=== PATIENT | male | born 1965 | race Caucasian/White ===

== ENCOUNTER 2018-05-21 07:52 | Day surgery (SDC) | payer OTHER ==
[2018-05-20 14:15] VITALS: BMI 26.1
[2018-05-21] MEDS ORDERED: PROPOFOL 20 ML ONE ×5 (08:24)
[2018-05-21 09:37] VITALS: TEMP 97.3
[2018-05-21 15:00] VITALS: BP 124/86; PULSE 66
--- NOTE | 2018-05-22 16:26 | PATH ---
Surgical Pathology Report Patient Name: CHEY ROYAL [facility]. Rec. #: [id number] /Age/Gender: 1965 (Age: 52) / M Account: [id number] Location: ASU-ENDOSCOPY Taken: 05/21/2018 Received: 05/21/2018 Reported: 05/22/2018 Physicians: Sukhwinder Garcia D.O. Specimen(s) Received BX CECAL POLYP Clinical History Screening Postoperative diagnosis: Colon polyp and hemorrhoids Final Diagnosis CECAL POLYP, POLYPECTOMY: TUBULAR ADENOMA. Electronically Signed Monika Mike M.D. Gross Description Received in formalin, labeled "cecal polyp biopsy" is a funez, irregular portion of soft tissue measuring 0.3 cm. in greatest dimension. The specimen is submitted in toto in one cassette. 05/21/201805/21/2018
== END 2018-05-21 10:30 | disposition home or self-care (01) ==
LOC: JASU-ENDO 07:52
PROVIDERS: ATTEND Internal Medicine Gastroenterology
PROC: 0DBH8ZX Excision of Cecum, Via Natural or Artificial Opening Endoscopic, Diagnostic (ICD-10-PCS; principal; 2018-05-21 09:00)
DX: Z12.11 Encounter for screening for malignant neoplasm of colon (principal); K64.8 Other hemorrhoids; D12.0 Benign neoplasm of cecum
CPT/HCPCS: 88305-TC

== ENCOUNTER 2020-01-07 16:56 | Inpatient (IN) | payer OTHER ==
--- NOTE | 2020-01-07 17:26 | PDOC ---
History of Present Illness - General History Source: Patient, Significant Other Exam Limitations: No Limitations - History of Present Illness Initial Comments: 01/07/20 17:50 54 y.o. M no significant PMHx presenting due to fall. Patient states he has been feeling depressed for the past 2 weeks. Patient significant other (Alysia [phone]) reported that he was drinking this afternoon and was seen laying down on the floor in a contorted position. The daughter then came home who saw him get up walk, to the stairs and fall. Patient reports a non radiating pain in his R shoulder, no head trauma or LOC. Patient denies blurry vision, headache, chest pain, SOB, N/V/D. Patient when asked, said he would like treatment at [facility] because he "needs help". PCP: Dr. Gifford ([place]) PMHx: None Meds: In Chart Allergies: NKDA EKG: Sinus tachy, Left atrial enlargement, QTc 469 CT scan: Head CT shows a trace amount of acute subarachnoid blood within the basal segment of the left sylvian fissure with an attenuation focus within the left medial temporal lobe. Dispo: 01/07/20 21:42 01/07/20 21:49 Is this a multiple visit Asthma Patient?: No Timing/Duration: momentarily Severity: moderate Associated Symptoms: reports: other (Shoulder pain) Aspirin Received prior to arrival: Yes: no aspirin today Beta Mi Contraindications(Core Measure): Yes: Not Prescribed Beta Mi Given by EMS(Core Measure): No Beta Mi Taken at Home(Core Measure): No Beta Mi Not Indicated at this Time(Core Measure): No <Austen Valdovinos - Last Filed: 01/07/20 21:49> <Ana Lerma - Last Filed: 01/08/20 00:33> - General Chief Complaint: Injury Stated Complaint: FALL Time Seen by Provider: 01/07/20 17:11 Past History - Travel History Traveled outside of the country in the last 30 days: No Close contact w/someone who was outside of country & ill: No - Medical History Anemia: No Asthma: No Cancer: No Cardiac Disorders: No CVA: No COPD: No CHF: No Dementia: No Diabetes: No GI Disorders: No Disorders: No HTN: No Hypercholesterolemia: No Liver Disease: No Seizures: No Thyroid Disease: No - Psycho-Social/Smoking History Smoking History: Former smoker Have you smoked in the past 12 months: No If you are a former smoker, when did you quit?: 1994 <Austen Valdovinos - Last Filed: 01/07/20 21:49> <Ana Lerma - Last Filed: 01/08/20 00:33> - Medical History Allergies/Adverse Reactions: Allergies Allergy/AdvReac Type Severity Reaction Status Date / Time No Known Allergies Allergy Verified 01/07/20 17:25 Home Medications: Ambulatory Orders NK [No Known Home Medication] 05/20/18 Review of Systems - Review of Systems Able to Perform ROS?: Yes Is the patient limited [place] proficient: No Constitutional: No: Chills, Fever HEENTM: No: Blurred Vision, Double Vision Respiratory: No: Cough, Shortness of Breath Cardiac (ROS): No: Chest Pain, Lightheadedness ABD/GI: No: Constipated, Diarrhea, Nausea, Vomiting : No: Burning, Dysuria Musculoskeletal: Yes: Joint Pain (R Shoulder). No: Back Pain Neurological: No: Headache, Numbness, Tingling, Dizziness Psychiatric: Yes: Depression. No: Anxiety Hematologic/Lymphatic: No: Easy Bleeding, Easy Bruising <Austen Valdovinos - Last Filed: 01/07/20 21:49> *Physical Exam - Physical Exam General Appearance: Yes: Nourished, Appropriately Dressed Respiratory/Chest: positive: Lungs Clear, Normal Breath Sounds. negative: Chest Tender, Respiratory Distress, Accessory Muscle Use, Crackles, Stridor, Wheezing Cardiovascular: positive: Regular Rhythm, Regular Rate. negative: JVD Gastrointestinal/Abdominal: positive: Normal Bowel Sounds, Flat, Soft. negative: Tender, Organomegaly, Rebound, Tenderness Musculoskeletal: positive: Normal Inspection. negative: CVA Tenderness Extremity: positive: Normal Inspection. negative: Tender Integumentary: positive: Normal Color, Dry, Warm Neurologic: positive: Fully Oriented, Alert, Normal Mood/Affect, Normal Response <Austen Valdovinos - Last Filed: 01/07/20 21:49> - Vital Signs Last Vital Signs Temp Pulse Resp BP Pulse Ox 98.5 F 106 H 20 149/106 H 93 L 01/07/20 17:25 01/07/20 21:49 01/07/20 21:49 01/07/20 21:49 01/07/20 21:49 <Ana Lerma - Last Filed: 01/08/20 00:33> ED Treatment Course - LABORATORY CBC & Chemistry Diagram: 01/07/20 18:00 01/07/20 18:00 <Austen Valdovinos - Last Filed: 01/07/20 21:49> - LABORATORY CBC & Chemistry Diagram: 01/07/20 18:00 01/07/20 18:00 - ADDITIONAL ORDERS Additional order review: Laboratory Results 01/07/20 01/07/20 01/07/20 21:25 21:25 21:25 PT with INR 11.40 INR 0.97 PTT (Actin FS) Cancelled 26.4 Sodium Potassium Chloride Carbon Dioxide Anion Gap BUN Creatinine Est GFR (CKD-EPI)AfAm Est GFR (CKD-EPI)NonAf Random Glucose Calcium Total Bilirubin AST ALT Alkaline Phosphatase Creatine Kinase Creatine Kinase Index CK-MB (CK-2) Troponin I Total Protein Albumin Blood Type A POSITIVE Antibody Screen Negative 01/07/20 18:00 PT with INR INR PTT (Actin FS) Sodium 145 Potassium 4.0 Chloride 109 H Carbon Dioxide 30 Anion Gap 6 L BUN 14.4 Creatinine 0.8 Est GFR (CKD-EPI)AfAm 118.20 Est GFR (CKD-EPI)NonAf 101.99 Random Glucose 91 Calcium 8.8 Total Bilirubin 0.4 AST 54 H ALT 56 Alkaline Phosphatase 57 Creatine Kinase 194 Creatine Kinase Index 0.8 CK-MB (CK-2) 1.6 Troponin I < 0.02 Total Protein 7.4 Albumin 3.9 Blood Type Antibody Screen 01/07/20 18:00 RBC 4.18 MCV 95.0 MCHC 33.9 RDW 14.0 MPV 6.9 L Neutrophils % 73.2 Lymphocytes % 17.7 Monocytes % 6.2 Eosinophils % 1.8 Basophils % 1.1 - Medications Given in the ED: ED Medications Discontinued Medications Generic Name Dose Route Start Last Admin Trade Name Freq PRN Reason Stop Dose Admin Acetaminophen 1,000 mg 01/07/20 21:24 01/07/20 21:43 Ofirmev Injection - IVPB 01/07/20 21:25 1,000 mg ONCE ONE Administration Lactated Ringer's 1,000 ml 01/07/20 17:40 01/07/20 18:39 Lactated Ringers Solution IV 01/07/20 17:41 1,000 ml ONCE ONE Administration Levetiracetam 1,000 mg 01/07/20 21:48 01/07/20 23:25 Keppra Injection - IVPB 01/07/20 21:49 1,000 mg ONCE ONE Administration Metoclopramide HCl 10 mg 01/07/20 21:26 01/07/20 21:43 Reglan Injection - IVPUSH 01/07/20 21:27 10 mg ONCE ONE Administration <Ana Lerma - Last Filed: 01/08/20 00:33> Medical Decision Making - Medical Decision Making 01/07/20 18:03 54 y.o. M no significant PMHx presenting due to fall. DDx: Acute alcohol intoxication, mechanical fall, depression, rhabdo Labs: AST 54, ALT 56, CK 194, Trop <0.02 CT: Head CT shows a trace amount of acute subarachnoid blood within the basal segment of the left sylvian fissure with an attenuation focus within the left medial temporal lobe. Sinus tachy, Left atrial enlargement, QTc 469 Dispo: Signed out to Resident Dr. Lerma 01/07/20 21:48 <Austen Valdovinos - Last Filed: 01/07/20 21:49> - Medical Decision Making 01/08/20 00:19 Brain CTA: FINDINGS: Intracranial portion of the left vertebral artery is not visualized and may be congenitally very small or absent. No large vessel occlusion, cerebral aneurysm, or AVM. Dural sinuses appear patent. Will admit to ICU. 01/08/20 00:29 Call placed to ICU, they will come evaluate the patient. <Ana Lerma - Last Filed: 01/08/20 00:33> Discharge <Austen Valdovinos - Last Filed: 01/07/20 21:49> - Discharge Information Problems reviewed: Yes <Ana Lerma - Last Filed: 01/08/20 00:33> - Discharge Information Clinical Impression/Diagnosis: Subarachnoid bleed
[2020-01-07] MEDS ORDERED: LACTATED RINGERS SOLUTION 1000 ML INFUS.BAG IV ONE (17:40)
--- NOTE | 2020-01-07 17:52 | PDOC ---
Documentation entered by Gurvinder Hickman SCRIBE, acting as scribe for Claritza Asencio DO. Claritza Asencio, DO: This documentation has been prepared by the Vick chavez Angel, SCRIBE, under my direction and personally reviewed by me in its entirety. I confirm that the documentation accurately reflects all work, treatment, procedures, and medical decision making performed by me. Attending Attestation - Resident Resident Name: Austen Valdovinos - ED Attending Attestation I have performed the following: I have examined & evaluated the patient, The case was reviewed & discussed with the resident, I agree w/resident's findings & plan, Exceptions are as noted - HPI HPI: 01/07/20 17:52 The patient is a 54 year old male with no significant past medical history who presents to the ED BIBA s/p unwitnessed fall earlier today. The patient was drunk and fell down some stairs. The patient was found on the ground and is unable to determine how long he was on the ground. spoke with the patients roommate on the phone and they state the patient has been drinking a lot more recently. Patient recalls the incident stating he was walking down the stairs and missed the last 2 steps falling to the ground. Denies any head injuries, LOC, headache, chest pain or SOB. - Physicial Exam PE: 01/07/20 17:48 Gen: aaox3, nad heent: EOMI, MMM neck: supple, no midline ttp, no stepoffs or deformities head: no external signs of trauma back: no midline ttp, no stepoffs or deformities abd: soft, nt/nd +bs ext: no c/c/e, FROM of all extremities, no ttp, pulses intact, muscle strength intact, sensation intact neuro: cn ii-xii grossly intact, no focal deficits - Critical Care Time Total Critical Care Time: 60 Critical Care Statement: The care of this patient involved high complexity decision making to prevent further life threatening deterioration of the patient's condition and/or to evaluate & treat vital organ system(s) failure or risk of failure. - Medical Decision Making 01/07/20 17:50 a/p: 54yo male with etoh use who fell down 2 stairs today -was found sleeping on the floor by his daughter -admits to taking shots of vodka today and decided to lay down on the floor -denies loc, denies head injury, C/o R shoulder pain, but has FROM -sensation intact -muscle strength intact -no c/t/l spine ttp -will send for ct head and c spine -will send labs as pt was found on the floor - unsure how long he was sleeping on the floor -will monitor and reassess 01/07/20 21:25 pt with subarachnoid hemorrhage and intraparenchymal bleeding will send type and screen coags will call Dr Darrell Dumont, neurosx to discuss pt and family updated npo iv tylenol for almeida 01/07/20 21:27 ct c spine neg 01/07/20 21:[address] Dumont who recommends CTA brain, if neg for aneurysm than can admit to [facility] and monitor, he will see patient in consult, if +aneurysm then will need transfer 01/08/20 00:29 no aneurysm visualized will admit to ICU given subarachnoid/parenchymal bleeding 01/08/20 00:49 ICU resident at the bedside Heart Score/ECG Review - ECG Intrepretation Comment:: 01/07/20 21:39 sinus tach at 107, t wave inversions inferior leads, no acute st changes, abnl ekg Discharge - Discharge Information Problems reviewed: Yes Clinical Impression/Diagnosis: Subarachnoid bleed Condition: Guarded - Admission Yes - Follow up/Referral - Patient Discharge Instructions - Post Discharge Activity
[2020-01-07 18:46] LABS: BASO % 1.1 % (0-2.0); EOS % 1.8 % (0-4.5); HEMATOCRIT 39.7 % (35.4-49); HEMOGLOBIN 13.4 GM/dL (11.7-16.9); LYMPH % 17.7 % (8-40); MCH 32.2 pg (25.7-33.7); MCHC 33.9 g/dl (32.0-35.9); MEAN PLT VOLUME 6.9 fl (7.5-11.1); MONO % 6.2 % (3.8-10.2); NEUT % 73.2 % (42.8-82.8); PLATELET COUNT 284 K/MM3 (134-434); RBC 4.18 M/mm3 (4.00-5.60); WHITE BLOOD COUNT 7.6 K/mm3 (4.0-10.0)
[2020-01-07 19:28] LABS: ALBUMIN 3.9 g/dl (3.4-5.0); ALK PHOS 57 U/L (45-117); ANION GAP 6 MMOL/L (8-16); BILIRUBIN,TOTAL 0.4 mg/dL (0.2-1); BLOOD UREA NITROGEN 14.4 mg/dL (7-18); CALCIUM 8.8 mg/dL (8.5-10.1); CHLORIDE 109 mmol/L (98-107); CO2 30 mmol/L (21-32); CREATININE 0.8 mg/dL (0.55-1.3); GLUCOSE,RANDOM 91 mg/dL (74-106); SGOT/AST 54 U/L (15-37); SGPT/ALT 56 U/L (13-61); SODIUM 145 mmol/L (136-145); TOT PROT 7.4 g/dl (6.4-8.2)
--- OUTSIDE RECORDS SUMMARY | 2020-01-07 20:34 | XMS ---
:1965 Author Organization [facility] Support Name Relationship Address Phone UCHE REALTY Unavailable [address] [phone] [place] [address] MOE ROYAL FATHER [address] [facility] [place] [address] Re-disclosure Warning The records that you are about to access may contain information from federally- assisted alcohol or drug abuse programs. If such information is present, then the following federally mandated warning applies: This information has been disclosed to you from records protected by federal confidentiality rules (42 CFR part 2). The federal rules prohibit you from making any further disclosure of this information unless further disclosure is expressly permitted by the written consent of the person to whom it pertains or as otherwise permitted by 42 CFR part 2. A general authorization for the release of medical or other information is NOT sufficient for this purpose. The Federal rules restrict any use of the information to criminally investigate or prosecute any alcohol or drug abuse patient.The records that you are about to access may contain highly sensitive health information, the redisclosure of which is protected by Article 27-F of the [facility] Public Health law. If you continue you may haveaccess to information: Regarding HIV / AIDS; Provided by facilities licensed or operated by the [facility] Office of Mental Health; or Provided by the [facility] Office for People With Developmental Disabilities. If such information is present, then the following [facility] mandated warning applies: This information has been disclosed to you from confidential records which are protected by state law. State law prohibits you from making any further disclosure of this information without the specific written consent of the person to whom it pertains, or as otherwise permitted by law. Any unauthorized further disclosure in violation of state law may result in a fine or senior care sentence or both. A general authorization for the release of medical or other information is NOT sufficient authorization for further disclosure. Insurance Providers Payer name Policy type Policy ID Covered Covered democrat's Policy P lisha / Coverage democrat ID relationship to Weinstein Inf ormation type weinstein [employer] [id number] SP [id number] [employer] [id number] 1 [id number] Results ID Date Data Source [id number] 04/15/1799 11:59:58 PM -04:56:02 [facility] Name Value Range Interpretation Code Description Data Kate rce(s) Supporting Document(s ) SARS-COV-2 [facility] QL KATTY+PROBE This lab was ordered by REEMA EISENBERG and reported by [facility]. Procedure
[2020-01-07] MEDS ORDERED: ACETAMINOPHEN 1000 MG/100 ML VIAL (NON FORMULARY) IVPB ONE (21:24)
[2020-01-07] MEDS ORDERED: METOCLOPRAMIDE HCL INJECTION 10 MG/2 ML VIAL IVPUSH ONE (21:26)
[2020-01-07] MEDS ORDERED: METOCLOPRAMIDE HCL INJECTION 10 MG/2 ML VIAL ONE (21:33)
[2020-01-07] MEDS ORDERED: ACETAMINOPHEN INJECTION 100 ML IVPB ONE (21:33)
[2020-01-07] MEDS ORDERED: levETIRAcetam 500 MG/5 ML INJECTION VIAL IVPB ONE ×2 (21:48→23:07)
[2020-01-07 22:06] LABS: INR 0.97 (0.83-1.09); PROTHROMBIN TIME (PATIENT) 11.4 SEC (9.7-13.0)
[2020-01-07 22:09] LABS: ACTIVATED PTT 26.4 SECONDS (25.2-36.5)
--- OUTSIDE RECORDS SUMMARY | 2020-01-08 00:51 | XMS ---
:1965 Author Organization [facility] Support Name Relationship Address Phone UCHE REALTY Unavailable [address] [place] [address] MOE ROYAL FATHER [address] [facility] [place] [address] Re-disclosure Warning The records that you are [...] is protected by Article 27-F of the [facility] Public Health law. If you continue you may haveaccess to information: Regarding HIV / AIDS; Provided by facilities licensed or operated by the [facility] Office of Mental Health; or Provided by the [facility] Office for People With Developmental Disabilities. If such information is present, then the following [facility] mandated warning applies: This information has been [...] law may result in a fine or correction sentence or both. A general authorization for the release of medical or other information is NOT sufficient authorization for further disclosure. Insurance Providers Payer name Policy type Policy ID Covered Covered democrat's Policy P lisha / Coverage democrat ID relationship to [employer] Inf ormation type weinstein [employer] [id number] SP [id number] [employer] [id number] 1 [id number] Results ID Date Data Source [id number] 04/15/1799 11:59:58 PM -04:56:02 [facility] Name Value Range Interpretation Code Description Data Kate rce(s) Supporting Document(s ) SARS-COV-2 [facility] QL KATTY+PROBE This lab was ordered by REEMA EISENBERG and reported by [facility]. Procedure
--- NOTE | 2020-01-08 01:14 | CONSULT ---
Consultation: REQUESTING PROVIDER: Dr. Asencio CONSULT REQUEST: We have been asked to medically evaluate this patient for ICU HISTORY OF PRESENT ILLNESS: 54 yo Male with no significant PMHx presenting to ED s/p fall. Patient stated he was rushing down the steps outside his house when he fell and hit his head on the concrete stairs. The daughter heard him fall and ran out and she saw him get up walk. The patient denies LOC after fall. He had a headache treated with tylenol in ED and currently denies any head pain. He denies any changes in his vision, chest pain, SOB, palpitation, n/v/d. It was reported by patient's significant other that he had been drinking today. Patient reports drinking occasionally, a few scotches a night a few days a week. He denied any problems with alcohol or drug use. Denied tobacco use. It's unclear whether patient was drunk when he fell based on his report. Patient appears sober now and does not appear to be showing any signs/symptoms of withdrawal. CT HEAD: trace amount of acute subarachnoid blood within the basal segment of the left sylvian fissure with an attenuation focus within the left medial temporal lobe. CTA: Intracranial portion of the left vertebral artery is not visualized and may be congenitally very small or absent. No large vessel occlusion, cerebral aneurysm, or AVM. Dural sinuses appear patent. REVIEW OF SYSTEMS: CONSTITUTIONAL: Absent: fever, chills, diaphoresis, generalized weakness, malaise, loss of appe tite, weight change HEENT: Absent: rhinorrhea, nasal congestion, throat pain, throat swelling, difficulty swallowing, mouth swelling, ear pain, eye pain, visual changes CARDIOVASCULAR: Absent: chest pain, syncope, palpitations, irregular heart rate, lightheadedness, peripheral edema RESPIRATORY: Absent: cough, shortness of breath, dyspnea with exertion, orthopnea, wheezing, stridor, hemoptysis GASTROINTESTINAL: Absent: abdominal pain, abdominal distension, nausea, vomiting, diarrhea, constipation, melena, hematochezia GENITOURINARY: Absent: dysuria, frequency, urgency, hesitancy, hematuria, flank pain, genital pain MUSCULOSKELETAL: Absent: myalgia, arthralgia, joint swelling, back pain, neck pain SKIN: Absent: rash, itching, pallor HEMATOLOGIC/IMMUNOLOGIC: Absent: easy bleeding, easy bruising, lymphadenopathy, frequent infections ENDOCRINE: Absent: unexplained weight gain, unexplained weight loss, heat intolerance, cold intolerance NEUROLOGIC: headache Absent: headache, focal weakness or paresthesias, dizziness, unsteady gait, seizure, mental status changes, bladder or bowel incontinence PSYCHIATRIC: Absent: anxiety, depression, suicidal or homicidal ideation, hallucinations. PHYSICAL EXAMINATION Vital Signs - 24 hr 01/07/20 01/07/20 17:25 21:49 Temperature 98.5 F Pulse Rate 117 H Pulse Rate [ 106 H Right Radial] Respiratory 20 20 Rate Blood Pressure 126/77 Blood Pressure 149/106 H [Left Arm] O2 Sat by Pulse 98 93 L Oximetry (%) GENERAL: Awake, alert, and fully oriented, in no acute distress. HEAD:small erythematous area to to the left of occipital bone, no active bleeding. EYES: PERRL, EOMI, conjunctiva clear ENT: Moist mucous membranes. NECK: Normal range of motion, supple LUNGS: CTA BL HEART: tachy with regular rhythm, normal S1 and S2 ABDOMEN: Soft, nontender, not distended MUSCULOSKELETAL: Normal range of motion at all joints. UPPER EXTREMITIES: warm, well-perfused. No peripheral edema. strength 5/5 BL, sensation intact BL LOWER EXTREMITIES: warm, well-perfused. No peripheral edema. strength 5/5 BL. sensation intact BL NEUROLOGICAL: Cranial nerves II-XII intact. Normal speech. PSYCHIATRIC: Cooperative. seems anxious SKIN: no rashes or lesions noted. Laboratory Results - last 24 hr 01/07/20 01/07/20 01/07/20 18:00 18:00 21:25 WBC 7.6 RBC 4.18 Hgb 13.4 Hct 39.7 MCV 95.0 MCH 32.2 MCHC 33.9 RDW 14.0 Plt Count 284 MPV 6.9 L Absolute Neuts (auto) 5.6 Neutrophils % 73.2 Lymphocytes % 17.7 Monocytes % 6.2 Eosinophils % 1.8 Basophils % 1.1 Nucleated RBC % 0 PT with INR 11.40 INR 0.97 PTT (Actin FS) 26.4 Sodium 145 Potassium 4.0 Chloride 109 H Carbon Dioxide 30 Anion Gap 6 L BUN 14.4 Creatinine 0.8 Est GFR (CKD-EPI)AfAm 118.20 Est GFR (CKD-EPI)NonAf 101.99 Random Glucose 91 Calcium 8.8 Total Bilirubin 0.4 AST 54 H ALT 56 Alkaline Phosphatase 57 Creatine Kinase 194 Creatine Kinase Index 0.8 CK-MB (CK-2) 1.6 Troponin I < 0.02 Total Protein 7.4 Albumin 3.9 Blood Type Antibody Screen 01/07/20 01/07/20 21:25 21:25 WBC RBC Hgb Hct MCV MCH MCHC RDW Plt Count MPV Absolute Neuts (auto) Neutrophils % Lymphocytes % Monocytes % Eosinophils % Basophils % Nucleated RBC % PT with INR INR PTT (Actin FS) Cancelled Sodium Potassium Chloride Carbon Dioxide Anion Gap BUN Creatinine Est GFR (CKD-EPI)AfAm Est GFR (CKD-EPI)NonAf Random Glucose Calcium Total Bilirubin AST ALT Alkaline Phosphatase Creatine Kinase Creatine Kinase Index CK-MB (CK-2) Troponin I Total Protein Albumin Blood Type A POSITIVE Antibody Screen Negative Home Medication List Medication Instructions Recorded Confirmed Type NK [No Known Home Medication] 05/20/18 01/07/20 History Active Medications Generic Name Dose Route Start Last Admin Trade Name Freq PRN Reason Stop Dose Admin Acetaminophen 650 mg 01/08/20 01:47 Tylenol - PO Q4H PRN PAIN 1-3 Chlorhexidine Gluconate 1 applic 01/08/20 22:00 Hibiclens For Decolonization - TP HS NANCY Levetiracetam 1,000 mg 01/08/20 10:00 Keppra - PO BID NANCY Mupirocin 1 applic 01/08/20 10:00 Bactroban Ointment (For Decolonization) - NS 01/13/20 09:59 BID NANCY Pantoprazole Sodium 40 mg 01/08/20 07:00 Protonix - PO ACBK NANCY ASSESSMENT/PLAN: 54 yo Male with no significant PMHx presenting to ED s/p fall. Head CT showed acute subarachnoid blood within the basal segment of the left sylvian fissure with an attenuation focus within the left medial temporal lobe. CTA performed showed no aneurysm. Patient being admitted to ICU. Neuro - awake, alert, responsive - subarachnoid bleed - Dr. Dumont (neurosurgery consulted) - Q2h neuro checks - monitor BP changes (keep BP < 140/90) - keppra for seizure precautions - GCS 15 Pulm - sat 100 % on RA - monitor for changes - CXR WNL Cardio - currently tachy - repeat EKG in AM - monitor for increased tachy/signs of increased bleed GI - no issues Renal - no issues FEN - NPO for now - monitor and replete electrolytes if needed DVT ppx - SCDs - NO AC, aspirin or NSAIDS GI ppx - protonix 40 po daily Dispo: Will admit patient to ICU for further management. ATTENDING PHYSICIAN STATEMENT I saw and evaluated the patient. I reviewed the resident's note and discussed the case with the resident. I agree with the resident's findings and plan as documented. SUBJECTIVE: OBJECTIVE: ASSESSMENT AND PLAN:
[2020-01-08] MEDS ORDERED: levETIRAcetam 500 MG/5 ML INJECTION VIAL IVPB SCH ×3 (02:00→10:00)
[2020-01-08 04:04] VITALS: BMI 25.9
[2020-01-08] MEDS: ACETAMINOPHEN 325 MG TABLET (FP) PO PRN (05:38)
[2020-01-08] MEDS: PANTOPRAZOLE 40 MG TABLET PO SCH (06:14)
[2020-01-08 07:05] LABS: HEMATOCRIT 36.4 % (35.4-49); HEMOGLOBIN 12.5 GM/dL (11.7-16.9); MCHC 34.2 g/dl (32.0-35.9); MEAN CELL VOLUME 93.6 fl (80-96); MEAN PLT VOLUME 7.1 fl (7.5-11.1); PLATELET COUNT 268 K/MM3 (134-434); RBC 3.89 M/mm3 (4.00-5.60); RDW 13.9 % (11.9-15.9); WHITE BLOOD COUNT 7.1 K/mm3 (4.0-10.0)
[2020-01-08 07:16] LABS: INR 0.98 (0.83-1.09); PROTHROMBIN TIME (PATIENT) 11.6 SEC (9.7-13.0)
[2020-01-08 07:18] LABS: ACTIVATED PTT 25.9 SECONDS (25.2-36.5)
[2020-01-08 07:27] LABS: BLOOD UREA NITROGEN 9.8 mg/dL (7-18); CALCIUM 8.6 mg/dL (8.5-10.1); CREATININE 0.7 mg/dL (0.55-1.3); MAGNESIUM 1.7 mg/dL (1.8-2.4); PHOSPHOROUS 3.8 mg/dL (2.5-4.9); POTASSIUM 3.8 mmol/L (3.5-5.1)
[2020-01-08] MEDS: levETIRAcetam 500 MG TABLET (FP) PO SCH ×2 (09:34→21:44)
[2020-01-08] MEDS ORDERED: MAGNESIUM OXIDE 400 MG TABLET (FP) PO ONE (09:39)
--- NOTE | 2020-01-08 11:06 | PN ---
Progress Note (short form) - Note Progress Note: NEUROSURGERY CONSULT DICTATED Chart reviewed Pt examined CT and CTA reviewed s/p EtOH intoxication and falls at home Some psot neck pain PE: AF, VSS Exam- non-focal Head CT- L medial temporal hyperdensity, ? 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
[2020-01-08] MEDS: MUPIROCIN 2% TOPICAL OINTMENT FOR DECOLONIZATION NS SCH ×2 (12:19→21:44)
--- NOTE | 2020-01-08 13:28 | PN ---
Progress Note, Physician History of Present Illness: Pt assessed at bedside. No acute events overnight after transitions. Pt is currently asymptomatic and denies almeida, diploplia, nv, tinnitus. - Current Medication List Current Medications: Active Medications Acetaminophen (Tylenol -) 650 mg PO Q4H PRN PRN Reason: PAIN 1-3 Last Admin: 01/08/20 05:38 Dose: 650 mg Documented by: Chlorhexidine Gluconate (Hibiclens For Decolonization -) 1 applic TP HS [facility] Levetiracetam (Keppra -) 1,000 mg PO BID [facility] Last Admin: 01/08/20 09:34 Dose: 1,000 mg Documented by: Mupirocin (Bactroban Ointment (For Decolonization) -) 1 applic NS BID [facility] Stop: 01/13/20 09:59 Last Admin: 01/08/20 12:19 Dose: 1 applic Documented by: Pantoprazole Sodium (Protonix -) 40 mg PO ACBK [facility] Last Admin: 01/08/20 06:14 Dose: 40 mg Documented by: - Objective Vital Signs: Vital Signs Temperature 98.8 F 01/08/20 09:00 Pulse Rate 108 H 01/08/20 09:00 Respiratory Rate 18 01/08/20 09:00 Blood Pressure 144/96 01/08/20 09:00 O2 Sat by Pulse Oximetry (%) 95 01/08/20 09:00 Constitutional: Yes: Well Nourished, No Distress, Calm. No: Anxious Eyes: Yes: Conjunctiva Clear, EOM Intact HENT: Yes: Atraumatic, Normocephalic Neck: Yes: Supple, Trachea Midline Cardiovascular: Yes: Regular Rate and Rhythm, Tachycardia, S1, S2. No: Bradycardia Respiratory: Yes: Regular, CTA Bilaterally Gastrointestinal: Yes: Normal Bowel Sounds, Soft Integumentary: Yes: WNL Neurological: Yes: Cran Nerves II-XII Intact. No: Ataxia, Confusion Psychiatric: Yes: Alert, Oriented. No: Agitated Labs: CBC, BMP 01/08/20 06:00 01/08/20 06:00 INR, PTT INR 0.98 (0.83-1.09) 01/08/20 06:00 Impression/Plan Impression/Plan: ASSESSMENT/PLAN: 54 yo Male with no significant PMHx presenting to ED s/p fall. Head CT showed acute subarachnoid blood. CTA performed showed no aneurysm. Patient being admitted to ICU. Neuro - awake, alert, responsive - GCS 15 - Imaging -CT Head- subarachnoid bleed in left sylvian fissure with attenuation focus within left medial temporal lobe -CT Angio- no aneurysm -MRI- to be done at 6pm - Dr. Dumont (neurosurgery consulted) - Q2h neuro checks - monitor BP changes (keep BP < 140/90) - keppra (1000, BID) for seizure precautions - tylenol prn for pain Pulm - sat 100 % on RA - monitor for changes - CXR WNL Cardio - currently tachy - monitor for increased tachy/signs of increased bleed GI - no issues Renal - no issues FEN - NPO for now - monitor and replete electrolytes if needed DVT ppx - SCDs - NO AC, aspirin or NSAIDS GI ppx - protonix 40 po daily Dispo: Pending MRI Visit type - Emergency Visit Emergency Visit: Yes ED Registration Date: 01/08/20 Care time: The patient presented to the Emergency Department on the above date and was hospitalized for further evaluation of their emergent condition. - New Patient This patient is new to me today: No - Critical Care Critical Care patient: No ATTENDING PHYSICIAN STATEMENT I saw and evaluated the patient. I reviewed the resident's note and discussed the case with the resident. I agree with the resident's findings and plan as documented. SUBJECTIVE: OBJECTIVE: ASSESSMENT AND PLAN:
--- NOTE | 2020-01-08 14:03 | EKG ---
Test Reason : Blood Pressure : / mmHG Vent. Rate : 100 BPM Atrial Rate : 100 BPM P-R Int : 152 ms QRS Dur : 086 ms QT Int : 360 ms P-R-T Axes : 060 048 035 degrees QTc Int : 464 ms NORMAL SINUS RHYTHM NORMAL ECG WHEN COMPARED WITH ECG OF 07-JAN-2020 21:40, NONSPECIFIC T WAVE ABNORMALITY HAS REPLACED INVERTED T WAVES IN INFERIOR LEADS Confirmed by CA GUTIERREZ MD ([id number]) on 01/08/2020 2:03:35 PM Referred By: JAIDA MADDOX DR Confirmed By:CA GUTIERREZ MD
--- NOTE | 2020-01-08 14:04 | EKG ---
Test Reason : Blood Pressure : / mmHG Vent. Rate : 107 BPM Atrial Rate : 107 BPM P-R Int : 182 ms QRS Dur : 084 ms QT Int : 352 ms P-R-T Axes : 064 043 001 degrees QTc Int : 469 ms SINUS TACHYCARDIA POSSIBLE LEFT ATRIAL ENLARGEMENT BORDERLINE ECG NO PREVIOUS ECGS AVAILABLE Confirmed by CA GUTIERREZ MD ([id number]) on 01/08/2020 2:04:39 PM Referred By: Confirmed By:CA GUTIERREZ MD
--- NOTE | 2020-01-08 15:35 | PN ---
Teaching Attending Note Name of Resident: Nir Gregory ATTENDING PHYSICIAN STATEMENT I saw and evaluated the patient. I reviewed the resident's note and discussed the case with the resident. I agree with the resident's findings and plan as documented. SUBJECTIVE: Patient seen and examined in the ICU. Awake and alert. AMEZQUITA has resolved. No BOV, nausea, vomiting, CP, or SOB. Intake & Output 01/05/20 01/06/20 01/07/20 01/08/20 23:59 23:59 23:59 23:59 Intake Total 10 Balance 10 Weight 155 lb 160 lb 11.2 oz Last Vital Signs Temp Pulse Resp BP Pulse Ox 98.8 F 108 H 18 144/96 95 01/08/20 09:00 01/08/20 09:00 01/08/20 09:00 01/08/20 09:00 01/08/20 09:00 Active Medications Acetaminophen (Tylenol -) 650 mg PO Q4H PRN PRN Reason: PAIN 1-3 Last Admin: 01/08/20 05:38 Dose: 650 mg Documented by: Chlorhexidine Gluconate (Hibiclens For Decolonization -) 1 applic TP HS [facility] Levetiracetam (Keppra -) 1,000 mg PO BID [facility] Last Admin: 01/08/20 09:34 Dose: 1,000 mg Documented by: Mupirocin (Bactroban Ointment (For Decolonization) -) 1 applic NS BID [facility] Stop: 01/13/20 09:59 Last Admin: 01/08/20 12:19 Dose: 1 applic Documented by: Pantoprazole Sodium (Protonix -) 40 mg PO ACBK [facility] Last Admin: 01/08/20 06:14 Dose: 40 mg Documented by: GENERAL: Awake, alert, and fully oriented, in no acute distress. HEAD:small erythematous area to to the left of occipital bone, no active bleeding. EYES: PERRL, EOMI, conjunctiva clear ENT: Moist mucous membranes. NECK: Normal range of motion, supple LUNGS: CTA BL HEART: tachy with regular rhythm, normal S1 and S2 ABDOMEN: Soft, nontender, not distended MUSCULOSKELETAL: Normal range of motion at all joints. UPPER EXTREMITIES: warm, well-perfused. No peripheral edema. strength 5/5 BL, sensation intact BL LOWER EXTREMITIES: warm, well-perfused. No peripheral edema. strength 5/5 BL. sensation intact BL NEUROLOGICAL: Non-focal PSYCHIATRIC: Cooperative. seems anxious SKIN: no rashes or lesions noted. Laboratory Results - last 24 hr 01/07/20 01/07/20 01/07/20 18:00 18:00 21:25 WBC 7.6 RBC 4.18 Hgb 13.4 Hct 39.7 MCV 95.0 MCH 32.2 MCHC 33.9 RDW 14.0 Plt Count 284 MPV 6.9 L Absolute Neuts (auto) 5.6 Neutrophils % 73.2 Lymphocytes % 17.7 Monocytes % 6.2 Eosinophils % 1.8 Basophils % 1.1 Nucleated RBC % 0 PT with INR 11.40 INR 0.97 PTT (Actin FS) 26.4 Sodium 145 Potassium 4.0 Chloride 109 H Carbon Dioxide 30 Anion Gap 6 L BUN 14.4 Creatinine 0.8 Est GFR (CKD-EPI)AfAm 118.20 Est GFR (CKD-EPI)NonAf 101.99 Random Glucose 91 Calcium 8.8 Phosphorus Magnesium Total Bilirubin 0.4 AST 54 H ALT 56 Alkaline Phosphatase 57 Creatine Kinase 194 Creatine Kinase Index 0.8 CK-MB (CK-2) 1.6 Troponin I < 0.02 Total Protein 7.4 Albumin 3.9 Blood Type Antibody Screen 01/07/20 01/07/20 01/08/20 21:25 21:25 06:00 WBC 7.1 RBC 3.89 L Hgb 12.5 Hct 36.4 MCV 93.6 MCH 32.0 MCHC 34.2 RDW 13.9 Plt Count 268 MPV 7.1 L Absolute Neuts (auto) Neutrophils % Lymphocytes % Monocytes % Eosinophils % Basophils % Nucleated RBC % PT with INR INR PTT (Actin FS) Cancelled Sodium Potassium Chloride Carbon Dioxide Anion Gap BUN Creatinine Est GFR (CKD-EPI)AfAm Est GFR (CKD-EPI)NonAf Random Glucose Calcium Phosphorus Magnesium Total Bilirubin AST ALT Alkaline Phosphatase Creatine Kinase Creatine Kinase Index CK-MB (CK-2) Troponin I Total Protein Albumin Blood Type A POSITIVE Antibody Screen Negative 01/08/20 01/08/20 06:00 06:00 WBC RBC Hgb Hct MCV MCH MCHC RDW Plt Count MPV Absolute Neuts (auto) Neutrophils % Lymphocytes % Monocytes % Eosinophils % Basophils % Nucleated RBC % PT with INR 11.60 INR 0.98 PTT (Actin FS) 25.9 Sodium 142 Potassium 3.8 Chloride 105 Carbon Dioxide 29 Anion Gap 8 BUN 9.8 Creatinine 0.7 Est GFR (CKD-EPI)AfAm 124.87 Est GFR (CKD-EPI)NonAf 107.74 Random Glucose 100 Calcium 8.6 Phosphorus 3.8 Magnesium 1.7 L Total Bilirubin AST ALT Alkaline Phosphatase Creatine Kinase Creatine Kinase Index CK-MB (CK-2) Troponin I Total Protein Albumin Blood Type Antibody Screen ASSESSMENT/PLAN: Acute subarachnoid hemorrhage due to mechanical fall while intoxicated (?) Lesion in the left sylvian fissure with an attenuation focus within the left medial temporal lobe. Aneurysm ruled out. Neurosurgery evaluation noted. For MRI. Monitor Neuro exam SCDs. PO as tolerated Bree as ordered Neuro floor Dr Kitchen
[2020-01-08] MEDS ORDERED: MAGNESIUM SULF 50% (8.12 MEQ/2 ML-1 GM VIAL) IVPB ONE (21:29)
[2020-01-08] MEDS ORDERED: CHLORHEXIDINE GLUCONATE 4% CLEANSER FOR DECOLONIZATION TP SCH (22:00)
[2020-01-09] MEDS: ACETAMINOPHEN 325 MG TABLET (FP) PO PRN (00:50)
[2020-01-09] MEDS ORDERED: SODIUM CHLORIDE 1,000 ML IV SCH (06:00)
[2020-01-09] MEDS: PANTOPRAZOLE 40 MG TABLET PO SCH (06:15)
[2020-01-09 06:49] LABS: HEMOGLOBIN 13.5 GM/dL (11.7-16.9); MCH 31.5 pg (25.7-33.7); MCHC 33.8 g/dl (32.0-35.9); MEAN CELL VOLUME 93.2 fl (80-96); MEAN PLT VOLUME 7.1 fl (7.5-11.1); PLATELET COUNT 264 K/MM3 (134-434); RBC 4.29 M/mm3 (4.00-5.60); RDW 13.4 % (11.9-15.9); WHITE BLOOD COUNT 8.4 K/mm3 (4.0-10.0)
[2020-01-09 07:12] LABS: CREATININE 0.8 mg/dL (0.55-1.3)
[2020-01-09 07:13] LABS: MAGNESIUM 2.1 mg/dL (1.8-2.4); PHOSPHOROUS 2.5 mg/dL (2.5-4.9); POTASSIUM 3.6 mmol/L (3.5-5.1)
--- NOTE | 2020-01-09 08:11 | PN ---
Progress Note, Physician History of Present Illness: Pt assessed at bedside. Resting comfortably. Complains of moderate headache that decreased after tylenol. No acute events overnight. - Current Medication List Current Medications: Active Medications Acetaminophen (Tylenol -) 650 mg PO Q4H PRN PRN Reason: PAIN 1-3 Last Admin: 01/09/20 00:50 Dose: 650 mg Documented by: Chlorhexidine Gluconate (Hibiclens For Decolonization -) 1 applic TP HS [facility] Last Admin: 01/08/20 21:44 Dose: 1 applic Documented by: Levetiracetam (Keppra -) 1,000 mg PO BID [facility] Last Admin: 01/08/20 21:44 Dose: 1,000 mg Documented by: Mupirocin (Bactroban Ointment (For Decolonization) -) 1 applic NS BID [facility] Stop: 01/13/20 09:59 Last Admin: 01/08/20 21:44 Dose: 1 applic Documented by: Pantoprazole Sodium (Protonix -) 40 mg PO ACBK [facility] Last Admin: 01/09/20 06:15 Dose: 40 mg Documented by: - Objective Vital Signs: Vital Signs Temperature 98.3 F 01/09/20 06:00 Pulse Rate 88 01/09/20 06:00 Respiratory Rate 16 01/09/20 06:00 Blood Pressure 145/93 01/09/20 06:00 O2 Sat by Pulse Oximetry (%) 98 01/08/20 22:00 Additional Findings/Remarks: Constitutional: Yes: Well Nourished, No Distress, Calm Eyes: Yes: Conjunctiva Clear, EOM Intact HENT: Yes: Atraumatic, Normocephalic Neck: Yes: Supple, Trachea Midline Cardiovascular: Yes: Regular Rate and Rhythm, S1, S2 Respiratory: Yes: Regular, CTA Bilaterally Gastrointestinal: Yes: Normal Bowel Sounds, Soft Musculoskeletal: Yes: Other (ambulation with normal gait). No: Back Pain, Joint Stiffness Neurological: Yes: Alert, Oriented Psychiatric: No: Agitated Labs: CBC, BMP 01/09/20 05:50 01/09/20 05:50 INR, PTT INR 0.98 (0.83-1.09) 01/08/20 06:00 Impression/Plan Impression/Plan: Impression/Plan: ASSESSMENT/PLAN: 54 yo Male with no significant PMHx presenting to ED s/p fall. Head CT showed acute subarachnoid blood. MRI showed 2.5 x 1.9 cm mass in left medial temporal lobe. Neuro - awake, alert, responsive, able to ambulate with normal gait - GCS 15 - Imaging -CT Head- subarachnoid bleed in left sylvian fissure with attenuation focus within left medial temporal lobe -CT Angio- no aneurysm -MRI- 2.5 x 1.9 cm mass in left medial temporal lobe (contusion related hemorrhage vs hemorrhagic mass) interventricular hemorrhage - Dr. Dumont (neurosurgery consulted) - per recommendations, follow up outpatient - keep on keppra for 1 week - Q2h neuro checks - monitor BP changes (keep BP < 140/90) - keppra (1000, BID) for seizure precautions - tylenol prn for pain Pulm - sat 100 % on RA - monitor for changes - CXR WNL Cardio - currently tachy - monitor for increased tachy/signs of increased bleed GI - no issues Renal - no issues FEN - regular diet DVT ppx - SCDs - NO AC, aspirin or NSAIDS GI ppx - protonix 40 po daily Dispo: neuro floor Visit type - Emergency Visit Emergency Visit: Yes ED Registration Date: 01/08/20 Care time: The patient presented to the Emergency Department on the above date and was hospitalized for further evaluation of their emergent condition. - New Patient This patient is new to me today: No - Critical Care Critical Care patient: No ATTENDING PHYSICIAN STATEMENT I saw and evaluated the patient. I reviewed the resident's note and discussed the case with the resident. I agree with the resident's findings and plan as documented. SUBJECTIVE: OBJECTIVE: ASSESSMENT AND PLAN:
--- NOTE | 2020-01-09 09:04 | PN ---
Progress Note (short form) - Note Progress Note: NEUROSURGERY Stable post neck pain PE: AF, VSS Exam- non-focal Head CT- L medial temporal hyperdensity, ? L medial Sylvian fissure hyperdensity CTA- no clear aneurysm, no significant enhancement of L medial temporal lobe lesion C spine CT- reversal of lordosis, C5-6 and C6-7 DDD, spondylosis Brain MRI (prelim, final reading pending)- T1 hypointense, T2 mildly hyperintense with surrounding hyperintense rim, FLAIR hypointense except rim, no significant enhancement; likely internal calcifications; Minimal ? L occipital ICH S/p mechanical fall while intoxicated L medial temporal gangliocytoma/ganglioglioma vs hemorrhagic contusion with mild surrounding edema Brain MRI with/without kelly in 1-2 months No steroid for now No anticonvulsant beyond one week for now D/w pt and ICU team Await final MRI reading F/u plan discussed Could be discharged today for outpatient f/u as pt is stable neurologically Pt expresses understanding of f/u plans and and instructions Office will contact pt to ask him to come in for f/u to get precert
[2020-01-09] MEDS: MUPIROCIN 2% TOPICAL OINTMENT FOR DECOLONIZATION NS SCH (09:32)
[2020-01-09] MEDS: levETIRAcetam 500 MG TABLET (FP) PO SCH (09:32)
--- NOTE | 2020-01-09 11:55 | DS ---
Physical Examination Vital Signs: Vital Signs Temperature 98.8 F 01/09/20 10:00 Pulse Rate 98 H 01/09/20 10:00 Respiratory Rate 18 01/09/20 10:00 Blood Pressure 152/108 H 01/09/20 10:00 O2 Sat by Pulse Oximetry (%) 98 01/09/20 09:00 Constitutional: Yes: Well Nourished, No Distress, Calm Eyes: Yes: Conjunctiva Clear, EOM Intact HENT: Yes: Atraumatic, Normocephalic Neck: Yes: Supple, Trachea Midline Cardiovascular: Yes: Regular Rate and Rhythm, S1, S2 Respiratory: Yes: Regular, CTA Bilaterally Gastrointestinal: Yes: Normal Bowel Sounds, Soft Musculoskeletal: Yes: Other (ambulation with normal gait). No: Back Pain, Joint Stiffness Neurological: Yes: Alert, Oriented Psychiatric: No: Agitated Labs: CBC, BMP 01/09/20 05:50 01/09/20 05:50 Discharge Summary Problems reviewed: Yes Reason For Visit: SUBARACHNOID HEMORRHAGE Current Active Problems Subarachnoid bleed (Acute) Hospital Course: ED Course: The patient is a 54 year old male with no significant past medical history who presented to the ED by EMS after an unwitnessed fall earlier today. The patient was drunk, missed a step, and fell down 2 steps of stairs. The patient was found on the ground and is unable to determine how long he was on the ground. Dr. Valdovinos spoke with the patients roommate on the phone and they state the patient has been drinking a lot more recently. EKG: sinus tachycardia at 107, t wave inversions inferior leads, no acute st changes, abnl ekg ICU Course Patient was stable in the ICU. Complained intermittently of a headache that resolved with tylenol. Dr. Randall Dumont (neurosurgeon) assessed the patient and recommended monitoring for 48 hours. Patient was asymptomatic for the last 48 hours with no seizure activity. Keppra (1000mg, BID) was ordered for seizure prophylaxis Physical exam showed in tact cranial nerve, in tact neuromuscular function. CT Head showed an acute subarachnoid blood in the left sylvian fissure and a attenutation focus. CTA Head did not find any aneursyms. MRI Head showed a focal left temporal lesion suspicision of hemorrhage with a differential including paranchymal hemorrhage from the fall vs a hemorrhagic neoplastic mass vs hemorrhagic encephalitis. MRI Head also found interventricular hemorrhage arising from the left temporal lobe. Dr. Dumont was made aware of the findings and recommended it is safe for discharge with outpatient follow up and keppra for 10 days. Over the 2 days the patient was observed, neurochecks were done every 2 hours and were all normal. Patient vitals signs were normal. Tylenol was given PRN for pain. Food was tolerated. Patient was able to ambulate and was using having normal bowel/urinary function. Upon discharge, the patients vitals were stable with a HR 98, BP 153/114, RR 14, SpO2 at 99% on room air. Patient is neuromsucularly in tact with normal findings on cranial nerve exams. NIH stroke scale of 0. Able to ambulate with normal gait. Heart and lung exam are unremarkable. Instructions were given to avoid strenuous activity, avoid activity that may lead to head trauma, follow up outpatient with PCP and Dr. Dumont within 5 days, and return precautions for worsening symptoms. Head CT w/o Contrast 1.1 x 0.7 cm high attenuation focus is noted within the left medial temporal lobe probably representing a focal hemorrhage and less likely a partially calcified nonspecific lesion. There is no obvious associated mass effect or edema. MRI evaluation is suggested. A possible subtle trace amount of acute subarachnoid blood is noted within the basal segment of the left sylvian fissure. Head CT Angiogram Impression: No aneurysm is identified. As also noted on a noncontrast CT study performed earlier the same day a focus of increased attenuation is noted within the left medial temporal lobe which could be on the basis of hemorrhage versus a nonspecific partially calcified lesion. Additional evaluation utilizing MRI is suggested (without and with contrast) as well as direct comparison with prior imaging studies if available from a different facility. Head MRI 1. There is a focal medial left temporal lobe lesion which is markedly hypointense on the susceptibility weighted imaging compatible with a hemorrhagic process. There is a minimal amount of predominantly peripheral enhancement surrounding the lesion. Differential considerations include hemorrhagic parenchymal contusion, hemorrhagic neoplasm and hemorrhagic encephalitis. 2. Small amount of dependently layering signal abnormality in the occipital horns of the lateral ventricles consisting of susceptibility weighted imaging hypointe nsity. In the left occipital horn there is mild diffusion hyperintensity of the signal abnormality. This is most compatible with a small amount of dependently layering intraventricular hemorrhage. The diffusion hyperintensity in the left occipital horn may represent T2 shine through artifact versus subacute hemorrhage. Infectious layering debris could be considered in the appropriate clinical setting, however this signal abnormality in the left occipital horn does not appeared to be true restricted diffusion when correlating with the ADC map. This intraventricular hemorrhage is most likely arising from the left temporal lobe hemorrhagic focus either through circulation through the subarachnoid space or direct extension given the proximity to the temporal horn of the left lateral ventricle. Condition: Stable - Instructions Diet, Activity, Other Instructions: You were found to have a brain bleed and were assessed for 48 hours with no neurological deficits. You were given medication to manage your pain and medication to prevent seizures. Please continue taking the medication, Keppra, for 10 days to prevent seizures. Imaging of your brain showed a lesion that will need follow-up. Please follow-up with neurosurgeon (Dr. Dumont) and your primary care physician within the next week. At home, limit both mental and physically strenuous work. Limit the amount of time you spend looking at a screen (phone, tv, laptops ect). MEDICATIONS Please START taking keppra 1000 mg twice a day. Follow-Up Please follow-up with neurosurgeon, Dr. Dumont, regarding your brain lesion, within one week. Please follow-up with your Primary care physician within one week regarding your recent hospitalization and for your general health maintenance. INSTRUCTIONS -Please return to the Emergency Department if your condition worsens and/or you experience headaches, vision changes, facial droops, difficulty talking/swallowing/walking, numbness, tingling, weakness. -At home, limit both mental and physically strenuous work. Limit the amount of time you spend looking at a screen (phone, tv, laptops ect). Referrals: Randall Dumont MD [Staff Physician] - Disposition: HOME - Home Medications Comprehensive Discharge Medication List: Ambulatory Orders NK [No Known Home Medication] 05/20/18 This patient is new to me today: Yes Date on this admission: 01/09/20 Emergency Visit: Yes ED Registration Date: 01/08/20 Care time: The patient presented to the Emergency Department on the above date and was hospitalized for further evaluation of their emergent condition. Critical Care patient: Yes Total Critical Care Time (in minutes): 30 Critical Care Statement: The care of this patient involved high complexity decision making to prevent further life threatening deterioration of the patient's condition and/or to evaluate & treat vital organ system(s) failure or risk of failure. - Discharge Referral Referred to [facility] Med P.C.: No ATTENDING PHYSICIAN STATEMENT I saw and evaluated the patient. I reviewed the resident's note and discussed the case with the resident. I agree with the resident's findings and plan as documented. SUBJECTIVE: OBJECTIVE: ASSESSMENT AND PLAN:
--- NOTE | 2020-01-09 12:41 | PN ---
Teaching Attending Note Name of Resident: Nir Gregory ATTENDING PHYSICIAN STATEMENT I saw and evaluated the patient. I reviewed the resident's note and discussed the case with the resident. I agree with the resident's findings and plan as documented. SUBJECTIVE: Patient seen and examined in the ICU. Awake and alert. AMEZQUITA has resolved. No BOV, nausea, vomiting, CP, or SOB. MRI: possible mass noted GENERAL: Awake, alert, and fully oriented, in no acute distress. HEAD:small erythematous area to to the left of occipital bone, no active bleeding. EYES: PERRL, EOMI, conjunctiva clear ENT: Moist mucous membranes. NECK: Normal range of motion, supple LUNGS: CTA BL HEART: tachy with regular rhythm, normal S1 and S2 ABDOMEN: Soft, nontender, not distended MUSCULOSKELETAL: Normal range of motion at all joints. UPPER EXTREMITIES: warm, well-perfused. No peripheral edema. strength 5/5 BL, sensation intact BL LOWER EXTREMITIES: warm, well-perfused. No peripheral edema. strength 5/5 BL. sensation intact BL NEUROLOGICAL: Non-focal PSYCHIATRIC: Cooperative. SKIN: no rashes or lesions noted. Laboratory Results - last 24 hr 01/08/20 01/09/20 01/09/20 01:10 05:50 05:50 WBC 8.4 RBC 4.29 Hgb 13.5 Hct 40.0 MCV 93.2 MCH 31.5 MCHC 33.8 RDW 13.4 Plt Count 264 MPV 7.1 L Sodium 140 Potassium 3.6 Chloride 101 Carbon Dioxide 31 Anion Gap 8 BUN 8.0 Creatinine 0.8 Est GFR (CKD-EPI)AfAm 118.20 Est GFR (CKD-EPI)NonAf 101.99 Random Glucose 116 H Calcium 9.0 Phosphorus 2.5 Magnesium 2.1 COVID-19 ([facility]) Not detected ASSESSMENT/PLAN: Acute subarachnoid hemorrhage due to mechanical fall while intoxicated (?) Mass lesion in the left sylvian fissure with an attenuation focus within the left medial temporal lobe. Aneurysm ruled out. Neurosurgery evaluation noted. Can be discharged and have further workup as an outpatient. PO as tolerated Bree as ordered DC planning Dr Kitchen
[2020-01-09 13:36] VITALS: BP 135/97; PULSE 99; TEMP 99.6
--- NOTE | 2020-01-09 17:27 | CONS ---
DATE OF CONSULTATION: 01/08/2020 REQUESTING PHYSICIAN: ED CONSULTING PHYSICIAN: Randall Mendez M.D., neurosurgery. CHIEF COMPLAINT: Left temporal lobe lesion. HISTORY OF PRESENT ILLNESS: The patient is a 54-year-old right-hand male with no significant past medical history who was intoxicated and fell down a flight of concrete steps just outside the house. He might have lost consciousness briefly. He has some stiffness and tenderness to the back of his neck which has continued to improve. Presently he has no headache, and no nausea or vomiting. He has no seizure activity. There is no increasing weakness or numbness to extremity. There is no bowel, bladder incontinence. There is no fever or chill or any recent infection. PAST MEDICAL HISTORY: Significance noncontributory. CURRENT MEDICATIONS: Tylenol, Protonix, and Keppra. ALLERGIES: No known drug allergies. FAMILY HISTORY: Noncontributory. SOCIAL HISTORY: He does not smoke and only drinks alcohol socially 3-4 times a week. He denies recreational drugs. He works in real estate development. REVIEW OF SYSTEMS: Otherwise negative for other major constitutional, head/neck, cardiovascular, pulmonary, gastrointestinal, genitourinary, endocrinologic, neurologic, or psychological problems except for the above. PHYSICAL EXAMINATION: Vital signs: Temperature is 98.8, blood pressure 144/96 with pulse rate 108, O2 saturation is 95% on room air. HEENT: Normocephalic, atraumatic, anicteric. Neck: Supple with no carotid bruit. Coronary: Regular rhythm. Lungs: Clear. Abdomen: Benign. Extremities: No signs of DVT. Neurologic: Patient is awake, alert, oriented x4. Cranial nerves exam, speech is normal, memory is intact. Cranial nerves examination is intact 2-12. Motor examination shows 5/5 strength without drift. Sensory examination is intact to light touch. Deep tendon reflexes are 2+ throughout. There is no pathological long tract sine. Gait is not tested for safety reasons. LABORATORY EXAMINATION: White blood cell count 7.1, hemoglobin 12.5, platelet count 268,000. INR is 0.98 and PTT is 25.9, serum sodium 142, potassium 3.8. BUN and creatinine are 9.8 and 0.7 respectively. COVID-[address] scan of the head demonstrated a left medial temporal vague hyperdensity. There also is faint hypertension in proximal left Sylvian fissure. There is no hydrocephalus or fracture. CT scan of cervical spine demonstrated reversal of normal cervical lordosis. There is degenerative disk space narrowing at C5-C6 and C6-C7 with associated spondylosis. There is no fracture or dislocation. CTA of the head does not demonstrate any aneurysm of AVM. IMPRESSION: 1. Left medial temporal hyperdensity, rule out gangliocytoma/ganglioglioma greater than hemorrhagic contusion. 2. S/p mechanical fall. RECOMMENDATION: The patient presents with some neck pain posteriorly. He was intoxicated with alcohol and fell on concrete steps. He has no other obvious injury. CT scan, neurological examination is nonfocal. CT scan of the head demonstrated a left medial temporal hyperdensity region which could be but is unlikely hemorrhagic contusion based on the location itself. MRI of the brain with or without gadolinium is recommended to better delineate the nature of this lesion. This could be gangliocytoma or ganglioglioma given the hyperdense nature which could reflect calcification. The patient would like to go home as soon as he can, but if the consensus is staying for MRI could be done early this evening. He should stay on Keppra for 1 week total just as a prophylaxis. Extending the course of anticonvulsive beyond 1 week is not indicated unless the patient has any verified seizure activity at this tie. The above was discussed with patient in detail at bedside with ICU. All questions answered. RANDALL MENDEZ M.D. CHUY/[id number] MTDNarciso
== END 2020-01-09 14:20 | disposition home or self-care (01) | DRG 55 ==
LOC: JER 16:56 → JERBED 01-08 00:40 → JICU 01-08 03:33
PROVIDERS: ADMIT Internal Medicine Pulmonary Disease; ATTEND Internal Medicine Pulmonary Disease
DX: S06.6X0A Traumatic subarachnoid hemorrhage without loss of consciousness, initial encounter (principal); F10.129 Alcohol abuse with intoxication, unspecified; W17.89XA Other fall from one level to another, initial encounter; Y92.098 Other place in other non-institutional residence as the place of occurrence of the external cause; G93.6 Cerebral edema; Y90.9 Presence of alcohol in blood, level not specified; R00.0 Tachycardia, unspecified
CPT/HCPCS: 36415; 70450-TC; 70496-TC; 70552-TC; 71045-TC-FY; 72125-TC; 80048; 80053; 82550; 82553; 83735; 84100; 84484; 85025; 85027; 85610; 85730; 86850; 86900; 86901; 93005; 93010; 99291; A9579; J0131; Q9967; U0003